=== PATIENT | male | born 1985 | race Caucasian/White ===

== ENCOUNTER 2020-03-20 10:51 | Emergency (ER) | payer BC, SELFPAY ==
--- NOTE | ~2020-03-20 | XR_ITS ---
EXAMINATION: XR chest 2V EXAM DATE: 03/20/2020 11:27 INDICATION: Mid chest pain. TECHNIQUE: Frontal and lateral projections of the chest obtained and reviewed. Comparison is made to prior examination from 03/31/2018. FINDINGS: Mild hyperinflation. The lungs are clear. There are no pleural effusions. The cardiomedi astinal silhouette is within normal limits. There is no pneumothorax suspected. The bones and soft tissues are unremarkable. IMPRESSION: Mild hyperinflation. Clear lungs. Reviewed, dictated and finalized at location B.
--- NOTE | 2020-03-20 10:52 | ECG_ITS ---
Measurements Intervals [place] Rate: 96 P: 51 ID: [id number] QRS: 76 QRSD: 100 T: 71 QT: 359 QTc: 456 Interpretive Statements SINUS RHYTHM WITH SHORT ID INTERVAL BASELINE ARTIFACT- I, II, III, AVR, AVL, AVF, V1, V3-V5 BORDERLINE ECG Electronically Signed On 03-20-2020 11:02:08 CDT by Levi Mclain D.O.
[2020-03-20 11:00] VITALS: BP 136/87; PULSE 97; RESP 18; TEMP 36.5; O2SAT 98
[2020-03-20 11:27] LABS: Basophils Absolute Auto 0.1 K/mm3 (0.0-0.1); Basophils Percent Auto 0.4 % (0.2-1.2); Eosinophils Absolute Auto 0.2 K/mm3 (0-0.3); Eosinophils Percent Auto 1.2 % (0-4.4); Hematocrit 49.8 % (42.0-52.0); Hemoglobin 17.3 g/dL (14.0-18.0); Immature Granulocyte Absolute 0.05 K/mm3 (0.00-0.031); Immature Granulocyte Percent A 0.4 % (0-0.5); Lymphocytes Absolute Auto 3.52 K/mm3 (0.9-3.2); Lymphocytes Percent Auto 27.4 % (18.3-44.2); Mean Corpuscular HGB Conc 34.7 g/dl (32-36); Mean Corpuscular Hemoglobin 30.2 pg (26-34); Mean Corpuscular Volume 87.1 fl (80-100); Mean Platelet Volume 9.2 fl (7.4-10.4); Monocytes Absolute Auto 0.9 K/mm3 (0.1-0.6); Monocytes Percent Auto 6.7 % (2.6-8.5); Neutrophils Absolute Auto 8.2 K/mm3 (1.3-6.7); Neutrophils Percent Auto 63.9 % (45.5-73.1); Platelet Count Result 321 k/mm3 (150-375); Red Blood Count 5.72 M/mm3 (4.6-6.20); Red Cell Distribution Width 12.8 % (11.5-14.5); White Blood Count 12.9 K/mm3 (4.5-10.0)
[2020-03-20 11:38] LABS: Anion Gap 13 mmol/L (8-16); Blood Urea Nitrogen 14 mg/dL (9-20); Calcium 10.1 mg/dL (8.4-10.2); Carbon Dioxide 24 mmol/L (22-30); Chloride 105 mmol/L (98-107); Estimated CRCL calculation 97 ml/min; Estimated Glomerular Filt Rate > 60; Glucose 100 mg/dL (75-110); Sodium 142 mmol/L (137-145)
[2020-03-20 11:40] LABS: Prothrombin Time 13.1 Seconds (11.1-14.7)
[2020-03-20 11:50] LABS: Troponin I < 0.012 ng/mL (0.000-0.034)
[2020-03-20 13:29] VITALS: PULSE 83
[2020-03-20 13:37] VITALS: BP 128/79; PULSE 83; RESP 16; O2SAT 100
[2020-03-20] MEDS: ASPIRIN 81 MG CHEWABLE TABLET 324 MG PO (13:37)
--- NOTE | 2020-03-20 14:14 | ED.CHESTPAIN ---
HPI - Chest Pain General Chief Complaint: Chest Pain Stated Complaint: CP Time Seen by Provider: 03/20/20 13:38 Source: patient Mode of arrival: ambulatory History of Present Illness HPI narrative: This patient is a 34 year old male smoker who presents for evaluation of left chest pain. Patient states he has been having left sternal chest pain daily for 1 month. He states his pain may be worse with stress but he is not sure. He denies associated cough, sob, nausea, vomiting. He states today he was feeling lightheaded. He states he was seen by his PCP yesterday and he is being set up for an ECHO. He states his pain is 5/10 after take aspirin 325 . Related Data Home Medications Medication Instructions Recorded Confirmed alprazolam 06/29/19 sertraline [Zoloft] 100 mg PO DAILY 03/20/20 Allergies Allergy/AdvReac Type Severity Reaction Status Date / Time No Known Allergies Allergy Unknown Verified 03/20/20 11:15 Review of Systems Review of Systems: All systems reviewed & are unremarkable except as noted in HPI and below PMFSH Past Medical History Medical History (Updated 03/20/20 @ 16:42 by Gregoria Navarro MD) Anxiety Social History Social History (Updated 06/29/19 @ 17:13 by Addison Mathur PA-C) Smoking status: Current every day smoker Gender identity (if verbalized by the patient): Male Sexual Orientation (if Verbalized by the Patient): Straight or Heterosexual Exam Narrative: Exam Narrative: GENERAL: Well-appearing, well-nourished, and in no acute distress. HEAD: Normocephalic, atraumatic THROAT:Mucous membranes moist, Oropharynx normal without erythema, exudate, peritonsillar swelling or fluctuance NECK: Supple, without lymphadenopathy or mass RESPIRATORY: No respiratory distress, Airway patent, Respirations non-labored, Clear to auscultation without rales, rhonchi or wheeze HEART: Regular rate and rhythm. No murmur heard. Normal peripheral pulses. ABDOMEN: Soft, nontender, nondistended, normal active bowel sounds. No masses. No rebound or guarding, No organomegaly. EXTREMITIES: No edema, normal strength with full range of motion. SKIN: Warm, dry, normal color without rash NEURO: Alert and oriented x3. CN 2-12 grossly intact. No focal deficits. PSYCH: Normal mood and affect. Course Reevaluation(s) Reevaluation #1: Patient is resting comfortably in bed. His pain has improved. I discussed labs shows leukocytosis but no PE or CO. Date: 03/20/20 Time: 16:18 Vital Signs Vital signs: Vital Signs Temperature 97.7 F 03/20/20 11:00 Pulse Rate 97 03/20/20 11:00 Respiratory Rate 18 03/20/20 11:00 Blood Pressure 136/87 03/20/20 11:00 Pulse Oximetry 98 03/20/20 11:00 Temperature 97.7 F 03/20/20 11:00 Pulse Rate 69 03/20/20 16:49 Respiratory Rate 14 03/20/20 16:49 Blood Pressure 115/74 03/20/20 16:49 Pulse Oximetry 98 03/20/20 16:49 MDM - Chest Pain Lab Data Attestation: I reviewed the patient's lab results. Result diagrams: 03/20/20 11:21 03/20/20 11:21 Labs: Lab Results 03/20/20 03/20/20 03/20/20 Range/Units 11:21 11:21 11:21 WBC 12.9 H (4.5-10.0) K/mm3 RBC 5.72 (4.6-6.20) M/mm3 Hgb 17.3 (14.0-18.0) g/dL Hct 49.8 (42.0-52.0) % MCV 87.1 (80-100) fl MCH 30.2 (26-34) pg MCHC 34.7 (32-36) g/dl RDW 12.8 (11.5-14.5) % Plt Count 321 (150-375) k/mm3 MPV 9.2 (7.4-10.4) fl Immature Gran % (Auto) 0.4 (0-0.5) % Neut % (Auto) 63.9 (45.5-73.1) % Lymph % (Auto) 27.4 (18.3-44.2) % [place] % (Auto) 6.7 (2.6-8.5) % Eos % (Auto) 1.2 (0-4.4) % Baso % (Auto) 0.4 (0.2-1.2) % Lymph # (Auto) 3.52 H (0.9-3.2) K/mm3 [place] # (Auto) 0.9 H (0.1-0.6) K/mm3 Eos # (Auto) 0.2 (0-0.3) K/mm3 Baso # (Auto) 0.1 (0.0-0.1) K/mm3 Abs Immat Gran (auto) 0.05 H (0.00-0.031) K/mm3 Absolute Neuts (auto) 8.2 H (1.3-6.7) K/mm3 Abso
[2020-03-20 14:50] VITALS: BP 120/78; PULSE 74; RESP 18; O2SAT 100
[2020-03-20] MEDS: KETOROLAC 30 MG/ML VIAL (*BKC) IV PUSH (14:50)
[2020-03-20 15:29] LABS: Troponin I < 0.012 ng/mL (0.000-0.034)
[2020-03-20 15:41] LABS: D Dimer 0.27 ug/mL (<0.48)
[2020-03-20 15:46] VITALS: BP 117/77; PULSE 64; RESP 17; O2SAT 98
[2020-03-20 16:49] VITALS: BP 115/74; PULSE 69; RESP 14; O2SAT 98
== END 2020-03-20 16:55 | disposition home or self-care (01) ==
PROVIDERS: Emergency Provider General Practice; PCP Family Medicine
DX: R07.89 Other chest pain (principal); F17.200 Nicotine dependence, unspecified, uncomplicated; F41.9 Anxiety disorder, unspecified
CPT/HCPCS: 36415; 71046; 80048; 84484; 85025; 85380; 85610; 85730; 93005; 96374; 99284; A9270; J1885

== ENCOUNTER 2020-04-14 22:41 | Emergency (ER) | payer BC, SELFPAY ==
--- NOTE | ~2020-04-14 | XR_ITS ---
EXAMINATION: XR chest 1V portable INDICATION: Central chest pain, nausea and vomiting TECHNIQUE: Portable AP chest at 2313 hours COMPARISON: 03/20/2020 FINDINGS: The lungs are free of acute opacities. There is no pleural effusion or pneumothorax. The ca rdiomediastinal silhouette is normal. IMPRESSION: 1. No acute cardiopulmonary abnormality. Reviewed, dictated and finalized at location A. RWEAR CUTTER
--- NOTE | 2020-04-14 22:45 | ED.CHESTPAIN ---
HPI - Chest Pain General Chief Complaint: Chest Pain Stated Complaint: cp Time Seen by Provider: 04/14/20 22:44 History of Present Illness HPI narrative: Intermittent sharp, stabbing chest pain for the past month. Substernal radiating to the left. Associated with SOB, nausea, occasional vomiting. He believes that it may be axiety related, he has a h/o this and his anxiety is worse due to the fact that his recently left him. Related Data Home Medications Medication Instructions Recorded Confirmed alprazolam 06/29/19 escitalopram oxalate mg 04/14/20 Allergies Allergy/AdvReac Type Severity Reaction Status Date / Time No Known Allergies Allergy Unknown Verified 04/14/20 22:52 Review of Systems Review of Systems: All systems reviewed & are unremarkable except as noted in HPI and below Constitutional: Constitutional: Denies fever(s) Cardiovascular: Cardiovascular: Reports chest pain Respiratory: Respiratory: Reports dyspnea Gastrointestinal: Gastrointestinal: Reports nausea and Reports vomiting Neurologic: Reports dizziness and Reports numbness Psychiatric: Psychiatric: Reports anxiety and Reports depression PMFSH Past Medical History Medical History Anxiety Surgical History Surgical History History of orthopedic surgery Social History Social History Smoking status: Current every day smoker Gender identity (if verbalized by the patient): Male Exam Const: General: alert Nutritional Appearance: well nourished Orientation/consciousness: patient oriented x3 HENMT: Head: normal to inspection Chest: Chest palpation & inspection: tenderness Resp: Effort & Inspection: normal respiratory effort Auscultation: clear to auscultation bilaterally Cardio: Rate: tachycardic Rhythm: regular rhythm GI: GI Palp: Yes Soft to palpation and No Tenderness to palpation present (GI) Skin: General skin exam: normal color Neuro: General: patient oriented x3 and moves all extremities Speech: normal speech Extrem: General: normal to inspection Psych: Affect: Anxious affect present (tearful) Course Vital Signs Vital signs: Vital Signs Temperature 36.5 C 04/14/20 22:46 Pulse Rate 104 H 04/14/20 22:46 Respiratory Rate 15 04/14/20 22:46 Blood Pressure 145/101 H 04/14/20 22:46 Pulse Oximetry 100 04/14/20 22:46 Temperature 36.5 C 04/14/20 22:46 Pulse Rate 102 H 04/14/20 22:55 Respiratory Rate 15 04/14/20 22:46 Blood Pressure 145/101 H 04/14/20 22:46 Pulse Oximetry 99 04/14/20 22:55 MDM - Chest Pain MDM Narrative Medical decision making narrative: Pain not typical for cardiac causes and he is not at high risk. Pain improved with GI cocktail. likely a combination of GI tract related pain and anxiety Medical Records Data Attestation: I reviewed the patient's medical records. Lab Data Attestation: I reviewed the patient's lab results. Result diagrams: 04/14/20 22:59 04/14/20 22:59 Labs: Lab Results 04/14/20 04/14/20 Range/Units 22:59 22:59 WBC 13.8 H (4.5-10.0) K/mm3 RBC 5.05 (4.6-6.20) M/mm3 Hgb 15.5 (14.0-18.0) g/dL Hct 44.8 (42.0-52.0) % MCV 88.7 (80-100) fl MCH 30.7 (26-34) pg MCHC 34.6 (32-36) g/dl RDW 12.8 (11.5-14.5) % Plt Count 253 (150-375) k/mm3 MPV 9.4 (7.4-10.4) fl Immature Gran % (Auto) 0.4 (0-0.5) % Neut % (Auto) 64.3 (45.5-73.1) % Lymph % (Auto) 27.3 (18.3-44.2) % [place] % (Auto) 6.5 (2.6-8.5) % Eos % (Auto) 1.2 (0-4.4) % Baso % (Auto) 0.3 (0.2-1.2) % Lymph # (Auto) 3.76 H (0.9-3.2) K/mm3 [place] # (Auto) 0.9 H (0.1-0.6) K/mm3 Eos # (Auto) 0.2 (0-0.3) K/mm3 Baso # (Auto) 0.0 (0.0-0.1) K/mm3 Abs Immat Gran (auto) 0.05 H (0.00-0.031) K/mm3 Absolute Neuts (auto
[2020-04-14 22:46] VITALS: BP 145/101; PULSE 104; RESP 15; TEMP 36.5; O2SAT 100
--- NOTE | 2020-04-14 22:48 | ECG_ITS ---
Measurements Intervals [place] Rate: 100 P: 74 [place]: 131 QRS: 72 QRSD: 97 T: 68 QT: 342 QTc: 442 Interpretive Statements SINUS TACHYCARDIA POSSIBLE LEFT ATRIAL ENLARGEMENT INCOMPLETE RIGHT BUNDLE BRANCH BLOCK NONSPECIFIC T-WAVE ABNORMALITY- INFERIOR LEADS BASELINE ARTIFACT- I, II, III, AVR, AVL, AVF, V1 BORDERLINE ECG Electronically Signed On 04-15-2020 9:59:33 FAMILY THERAPIST by Levi Mclain D.O.
[2020-04-14 22:55] VITALS: PULSE 102; O2SAT 99
[2020-04-14] MEDS: PANTOPRAZOLE SODIUM IV 40 MG VIAL IV PUSH (23:03)
[2020-04-14] MEDS: BELLADONNA ALK/PHENOB ELIX 10 ML, MAG HYDROX/ALUMINUM HYD/SIMETH 30 ML, LIDOCAINE HCL 2... PO (23:03)
[2020-04-14 23:10] LABS: Basophils Percent Auto 0.3 % (0.2-1.2); Eosinophils Absolute Auto 0.2 K/mm3 (0-0.3); Eosinophils Percent Auto 1.2 % (0-4.4); Hematocrit 44.8 % (42.0-52.0); Hemoglobin 15.5 g/dL (14.0-18.0); Immature Granulocyte Absolute 0.05 K/mm3 (0.00-0.031); Immature Granulocyte Percent A 0.4 % (0-0.5); Lymphocytes Absolute Auto 3.76 K/mm3 (0.9-3.2); Lymphocytes Percent Auto 27.3 % (18.3-44.2); Mean Corpuscular HGB Conc 34.6 g/dl (32-36); Mean Corpuscular Hemoglobin 30.7 pg (26-34); Mean Corpuscular Volume 88.7 fl (80-100); Mean Platelet Volume 9.4 fl (7.4-10.4); Monocytes Absolute Auto 0.9 K/mm3 (0.1-0.6); Monocytes Percent Auto 6.5 % (2.6-8.5); Neutrophils Absolute Auto 8.9 K/mm3 (1.3-6.7); Neutrophils Percent Auto 64.3 % (45.5-73.1); Platelet Count Result 253 k/mm3 (150-375); Red Blood Count 5.05 M/mm3 (4.6-6.20); Red Cell Distribution Width 12.8 % (11.5-14.5); White Blood Count 13.8 K/mm3 (4.5-10.0)
[2020-04-14 23:21] LABS: Alanine Aminotransferase 22 U/L (4-50); Alkaline Phosphatase 70 U/L (38-126); Anion Gap 10 mmol/L (8-16); Aspartate Amino Transferase 25 U/L (17-59); Bilirubin,Total 0.5 mg/dL (0.2-1.3); Blood Urea Nitrogen 10 mg/dL (9-20); Calcium 9.5 mg/dL (8.4-10.2); Carbon Dioxide 27 mmol/L (22-30); Chloride 101 mmol/L (98-107); Estimated CRCL calculation 107 ml/min; Estimated Glomerular Filt Rate > 60; Glucose 131 mg/dL (75-110); Potassium 3.5 mmol/L (3.4-5.0); Sodium 138 mmol/L (137-145)
[2020-04-14 23:32] LABS: Troponin I < 0.012 ng/mL (0.000-0.034)
[2020-04-14 23:50] VITALS: BP 117/81; PULSE 78; RESP 16; TEMP 36.7; O2SAT 99
== END 2020-04-14 23:50 | disposition home or self-care (01) ==
PROVIDERS: Emergency Provider Emergency Medicine; PCP Family Medicine
DX: F41.9 Anxiety disorder, unspecified (principal); R07.89 Other chest pain; F17.200 Nicotine dependence, unspecified, uncomplicated; R00.0 Tachycardia, unspecified; R94.31 Abnormal electrocardiogram [ECG] [EKG]; I45.10 Unspecified right bundle-branch block
CPT/HCPCS: 36415; 71045; 80053; 84484; 85025; 93005; 96374; 99284; A9270; C9113

== ENCOUNTER 2020-06-28 12:35 | Outpatient (CLI) | payer BC, SELFPAY ==
--- NOTE | 2020-06-28 | ECHO_ITS ---
Patient Info Name: Bora Naranjo Age: 35 years : 1985 Gender: Male Ht: 68 in Wt: 180 lbs BSA: 2.00 m2 HR: 72 bpm BP: 126 / 87 mmHg Technical Quality: Fair Exam Date: 06/28/2020 1:03 PM Exam Location: [facility] Patient Status: Outpatient Admit Date: 06/28/2020 Staff Ordering Physician: WyattAshleigh NP Manager Production: Jazmín Hewitt RDCS Attending Provider: WyattAshleigh NP Exam Type: CA echo doppler color flow Study Info Indications R94.31 - Abnormal electrocardiogram ECG EKG Complete two-dimensional, color flow and Doppler transthoracic echocardiogram is performed. Summary 1. Complete two-dimensional, color flow and Doppler transthoracic echocardiogram is performed. 2. Left ventricular chamber dimension is normal. 3. Left ventricular systolic function is normal, estimated at 60-65%. 4. The left ventricular diastolic function is normal. 5. E/e' 9 is minimally elevated. 6. No pulmonary hypertension, estimated pulmonary arterial systolic pressure is 19 mmHg. Left Ventricle E/e' 9 is minimally elevated. Left ventricular chamber dimension is normal. Left ventricular systolic function is normal, estimated at 60-65%. The left ventricular diastolic function is normal. Right Ventricle Right ventricular chamber dimension is normal. Right ventricular systolic function is normal. Left Atria Left atrial chamber dimension is normal. Right Atria Right atrial chamber dimension is normal. Aortic Valve The aortic valve is trileaflet. There is no aortic valve stenosis. There is no aortic valve regurgitation. Pulmonic Valve There is no pulmonic regurgitation. Mitral Valve There is no mitral valve stenosis. There is no mitral valve regurgitation. Tricuspid Valve There is no tricuspid valve regurgitation. No pulmonary hypertension, estimated pulmonary arterial systolic pressure is 19 mmHg. Pericardium/Pleural There is no pericardial effusion. Inferior Vena Cava Normal inferior vena cava with >50% collapse upon inspiration consistent with normal right atrial pressure, 5 mmHg. Aorta The aortic root size at the sinus of Valsalva is normal. Left Ventricular Outflow Tract Name Value Normal LVOT 2D LVOT Diameter 2.0 cm LVOT Doppler LVOT Peak Gradient 4 mmHg LVOT Mean Gradient 2 mmHg LVOT VTI 20 cm LVOT VTI/AV VTI Ratio 1.0 LVOT Stroke Volume 64 ml LVOT CO 4.5 l/min LVOT CI 2.3 l/min/m2 Pulmonic Valve Name Value Normal RVOT Doppler RVOT Peak Gradient 2 mmHg PV Doppler PV Peak Gradient
== END 2020-06-28 12:36 | disposition home or self-care (01) ==
PROVIDERS: PCP Family Medicine; Visit Provider Nurse Practitioner Family
DX: R94.31 Abnormal electrocardiogram [ECG] [EKG] (principal)
CPT/HCPCS: 93306

== ENCOUNTER 2021-06-08 19:38 | Emergency (ER) | payer BC, SELFPAY ==
--- NOTE | 2021-06-08 19:42 | ED.URI ---
HPI - URI/Sore Throat General Chief Complaint: Upper Respiratory Infection Stated Complaint: Sinus infection Time Seen by Provider: 06/08/21 19:42 Source: patient and RN notes reviewed Mode of arrival: ambulatory Limitations: no limitations History of Present Illness HPI Narrative: Bora is a 36-year-old male patient who ambulated into the [facility]. Patient states he has a 3-day history of sinus congestion and sore throat. Patient has been taken Tylenol sinus [id number]. Patient denies any medical history except for anxiety. MD elicited complaint: nasal congestion Related Data Home Medications Medication Instructions Recorded Confirmed alprazolam 06/08/21 aripiprazole mg 06/08/21 cyclobenzaprine mg 06/08/21 escitalopram oxalate mg 06/08/21 escitalopram oxalate mg 06/08/21 Allergies Allergy/AdvReac Type Severity Reaction Status Date / Time No Known Allergies Allergy Unknown Verified 06/08/21 19:41 Review of Systems Review of Systems: CONSTITUTIONAL: Denies body aches, fever, chills, or sweats. EYES: Denies visual changes, redness, or discharge. ENT: Denies rhinorrhea, +congestion,+ sore throat, denies otalgia. CARDIOVASCULAR: Denies chest pain, palpitations, or edema. RESPIRATORY: Denies cough or dyspnea. GASTROINTESTINAL: Denies abdominal pain, nausea, vomiting, or diarrhea. GENITOURINARY: Denies dysuria or hematuria. SKIN: Denies rash, itching, or wounds. MUSCULOSKELETAL: Denies back pain, joint pain, or myalgia. NEUROLOGIC: Denies headache, numbness, tingling, or weakness. PSYCH: Denies depression or anxiety. All systems reviewed & are unremarkable except as noted in HPI and below PMFSH Past Medical History Medical History Anxiety Surgical History Surgical History History of orthopedic surgery Social History Social History Smoking status: Current every day smoker Gender identity (if verbalized by the patient): Male Sexual Orientation (if Verbalized by the Patient): Straight or Heterosexual Comments At time of signature, I have reviewed and agree with nursing past medical, surgical, social and family history unless otherwise noted. Please see nursing chart for further information. There is no relevant family history pertinent to the presenting complaint Exam Narrative: GENERAL: Well-appearing, well-nourished, and in no acute distress. HEAD: Normocephalic, atraumatic. EYES: EOMI. No redness or drainage. Conjunctivae normal. ENT: Mucous membranes pink and moist. Nasal membranes erythemic with clear rhinorrhea. Bilateral tympanic membranes are dull posterior pharynx is erythemic with moderate edema and moderate amount of clear postnasal drainage Uvula midline. NECK: Normal AROM. Supple. . CHEST: No respiratory distress. Clear to auscultation. MUSCULOSKELETAL: No bony tenderness. EXTREMITIES: Normal range of motion. No edema. SKIN: Warm, dry, no rash. Capillary refill normal. Normal skin turgor. NEURO: No focal deficits. Alert and oriented x3. Gait steady. PSYCH: Normal affect. No signs of depression or anxiety. Course Vital Signs Vital signs: Reviewed. Pt has been instructed to follow up with his PCP regarding his elevated blood pressure today. MDM - URI/Sore Throat MDM Narrative Medical decision making narrative: COVID-19 patient's rapid COVID-19 test is positive. Patient was instructed to quarantine for 10 days after symptom onset. Patient was advised he may use [id number] cold medications for symptomatic relief. Patient may use Motrin or Tylenol for fever or pain. Increase his fluids. Go to the ER urgently for any severe shortness of breath, chest pain, or any other emergent symptoms Differential Diagnosis Differential diagnosis: Likely upper respiratory infection, sinusitis and viral infe
[2021-06-08 19:47] VITALS: BP 142/88; PULSE 94; RESP 16; TEMP 37.6; O2SAT 99
== END 2021-06-08 19:55 | disposition home or self-care (01) ==
PROVIDERS: Emergency Provider Nurse Practitioner Family; PCP Dentist
DX: U07.1 COVID-19 (principal)
CPT/HCPCS: 87426; 99213; C9803; G0463

== ENCOUNTER 2023-08-15 17:27 | Emergency (ER) | payer BC, SELFPAY ==
[2023-08-15 17:36] VITALS: BP 150/86; PULSE 87; RESP 18; TEMP 36.9; O2SAT 100
--- NOTE | 2023-08-15 17:41 | ED.DENTAL ---
HPI - Dental/Oral General Chief complaint: Dental/Oral Stated complaint: Dental Pain Source: patient, RN notes reviewed and old records reviewed Mode of arrival: ambulatory Limitations: no limitations History of Present Illness HPI Narrative: 38-year-old male patient presents to [facility] with complaints left upper dental pain for last 1-2 weeks. Patient states now is having abscess form of gum and increased redness and pain in face. Patient states has had dental work on that tooth before. Patient states he is trying to get back in the dentist. Related Data Allergies Allergy/AdvReac Type Severity Reaction Status Date / Time No Known Allergies Allergy Unknown Verified 08/15/23 17:40 Review of Systems Constitutional: Constitutional: Reports no additional constitutional complaints, Denies body ache(s), Denies chills, Denies fatigue, Denies fever(s) and Denies headache(s) Eyes: Eyes: Reports no additional eye complaints and Denies blurry vision ENT: Reports system reviewed and no additional complaints, except as documented, Reports dental pain, Denies vertigo, Denies dizziness, Denies ear discharge, Denies otalgia, Denies facial pain, Denies headache(s), Reports mouth pain, Denies nasal congestion, Denies nasal discharge, Denies sinus pain, Denies sinus pressure and Denies sore throat Cardiovascular: Cardiovascular: Reports no additional cardiovascular complaints, Denies chest pain, Denies chest pain at rest, Denies rapid heart rate and Denies dyspnea Respiratory: Respiratory: Reports no additional respiratory complaints, Denies chest congestion, Denies cough, Denies pain on inspiration, Denies pain with cough and Denies dyspnea Gastrointestinal: Gastrointestinal: Denies abdominal pain, Denies diarrhea, Denies nausea and Denies vomiting Integumentary/Breasts: Skin/Breast: Denies rash Neurologic: Reports system reviewed and no additional complaints, except as documented, Denies vertigo, Denies dizziness and Denies headache(s) Endocrine: Endocrine: Denies fatigue PMFSH Past Medical History Medical History Anxiety Surgical History Surgical History History of orthopedic surgery Social History Social History Smoking status: Current every day smoker Gender identity (if verbalized by the patient): Male Sexual Orientation (if Verbalized by the Patient): Straight or Heterosexual Comments At the time of my signature, I reviewed and agree with the nursing past medical, surgical, social, and family history. There is no relevant family history pertinent to the patient complaint. Exam Const: General: cooperative, healthy appearing, no acute distress and well nourished Nutritional Appearance: well nourished Orientation/consciousness: patient oriented x3 Limitations: no limitations HENMT: Head: normal to inspection and normocephalic Ears: external ears normal Face/Nose/Sinus: normal facial exam Face and sinus: normal facial exam Mouth: Yes Normal oral and palatal mucosa present, Yes oropharynx normal and Yes moist mucous membranes Teeth and gingiva: gingiva abnormal edematous, diffusely erythematous and other ( Abscess noted between 12 and 13) and poor dentition Throat: tonsils normal, uvula midline and no uvular edema Eyes: General: appearance normal, both eyes and all related structures Sclera: sclerae normal Pupils: Equal, round and reactive pupils present Resp: Effort & Inspection: normal respiratory effort, able to speak in complete sentences, no audible wheezes, no cough, no respiratory distress and no retractions Auscultation: clear to auscultation bilaterally, no crackles, no rales, no rhonchi and no wheezes Cardio: Rate: regular rate Rhythm: regular rhythm Skin: General skin exam: normal color and no rashes or lesions noted Neuro: Genera
== END 2023-08-15 17:53 | disposition home or self-care (01) ==
PROVIDERS: Emergency Provider Registered Nurse
DX: K04.7 Periapical abscess without sinus (principal); F41.9 Anxiety disorder, unspecified; F17.200 Nicotine dependence, unspecified, uncomplicated
CPT/HCPCS: 99213; G0463

== ENCOUNTER 2025-06-02 12:45 | Emergency (ER) | payer BC, SELFPAY ==
[2025-06-02 12:56] VITALS: BP 144/87; PULSE 91; RESP 18; TEMP 36.8; O2SAT 99
[2025-06-02 13:08] LABS: EDSTREPNEGPOS1 Negative (Negative)
--- NOTE | 2025-06-02 13:18 | ED.URI ---
HPI - URI/Sore Throat General Chief Complaint: Upper Respiratory Infection Stated Complaint: SoreThroat Related Data Home Medications ?Medication ?Instructions ?Recorded ?Confirmed ?Last Taken ?Type lisinopril 30 mg tablet mg 06/02/25 Unknown History quetiapine 50 mg tablet mg 06/02/25 Unknown History Allergies Allergy/AdvReac Type Severity Reaction Status Date / Time No Known Allergies Allergy Unknown Verified 06/02/25 12:56 Review of Systems Constitutional: Constitutional: Reports as per HPI, Denies chills, Denies fatigue, Denies fever(s) and Denies weakness Eyes: Eyes: Reports no additional eye complaints ENT: Reports as per HPI, Denies vertigo, Denies dizziness, Reports nasal congestion and Reports sore throat Cardiovascular: Cardiovascular: Reports no additional cardiovascular complaints Respiratory: Respiratory: Reports as per HPI, Reports chest congestion, Reports cough, Denies dyspnea and Denies wheezing Gastrointestinal: Gastrointestinal: Reports no additional gastrointestinal complaints Genitourinary: Genitourinary: Reports no additional male genitourinary complaints Musculoskeletal: Musculoskeletal: Reports as per HPI, Denies back pain and Denies myalgias Integumentary/Breasts: Skin/Breast: Reports as per HPI, Denies erythema, Denies rash and Denies skin ulcer Neurologic: Reports as per HPI, Denies vertigo, Denies dizziness, Reports headache(s) and Denies weakness Psychiatric: Psychiatric: Reports no additional psychiatric complaints Endocrine: Endocrine: Reports no additional endocrine complaints Hematologic/Lymphatic: Hematologic/Lymphatic: Reports no additional hematologic/lymphatic complaints Allergic/Immunologic: Allergic/Immunologic: Reports as per HPI Comments: seasonal allergies PMFSH Past Medical History Medical History Anxiety Surgical History Surgical History History of orthopedic surgery Social History Social History Smoking status: Current every day smoker Gender identity (if verbalized by the patient): Male Sexual Orientation (if Verbalized by the Patient): Straight or Heterosexual Exam Const: General: healthy appearing and no acute distress Nutritional Appearance: well nourished Orientation/consciousness: patient oriented x3 Limitations: no limitations HENMT: Head: normal to inspection Ears: external ears normal and TM's normal bilaterally Face/Nose/Sinus: Normal external nose present, Normal nares present and Nasal discharge present clear Face and sinus: normal facial exam and sinuses nontender Mouth: Yes Normal oral and palatal mucosa present, Yes lip normal and Yes moist mucous membranes Throat: posterior oropharynx abnormal ( Minimal erythema and edema no exudate) Neck: Neck: normal visual inspection and no lymphadenopathy Resp: Effort & Inspection: normal respiratory effort Auscultation: no rhonchi, wheezes, breath sounds present and lung sounds not diminished Cardio: Rate: regular rate Rhythm: regular rhythm Skin: General skin exam: normal color Rashes: no rashes Wounds: no wounds Neuro: General: patient oriented x3 Speech: normal speech Gait exam (Neuro): Normal gait present Psych: Mental Status: mental status grossly normal Affect: normal affect Attitude: cooperative Course Course Level of Care: Express Care Visit Vital Signs Vital signs: Vital Signs Temperature 98.2 F 06/02/25 12:56 Pulse Rate 91 06/02/25 12:56 Respiratory Rate 18 06/02/25 12:56 Blood Pressure 144/87 H 06/02/25 12:56 Pulse Oximetry 99 06/02/25 12:56 Oxygen Delivery Room Air 06/02/25 12:56 Temperature 98.2 F 06/02/25 12:56 Pulse Rate 91 06/02/25 12:56 Respiratory Rate 18 06/02/25 12:56 Blood Pressure 144/87 H 06/02/25 12:56 Pulse Oximetry 99 06/02/25 12:56 Oxygen Delivery Room Air 06/02/25 12:56 [facility] Narrative Medical decision making narrative: Strep testing negative will send culture likely bronchitis The patient was evaluated by myself in the express care. History is obtained from patient who is an independent historian and physical exam was performed. Available medical records were reviewed at this time. Exam findings show no acute concerns or changes; patient is non-toxic appearing and is in no distress. Patient is appropriate for outpatient treatment and follow-up. I have evaluated and discussed social determinants of health with the patient that could potentially impact subsequent diagnosis and treatment plans. Differential diagnosis and treatment plan were discussed with the patient. Patient agrees with discussion and after shared medical decision making agrees with plan of care. All questions were answered to the patient's satisfaction. Differential Diagnosis Differential Diagnosis: bronchitis, sinusitis, croup, upper respiratory infection, strep, influenza Medical Records I have reviewed the following patient records and this information was taken into consideration when formulating the assessment and plan.: previous labs, previous ER visits, previous hospitalizations and previous clinic visits Lab Data MDM Lab Attestation statement: I personally reviewed the patient's lab results. Labs: Lab Results 06/02/25 Range/Units 13:06 POC Grp A Strep Screen Negative (Negative) Discharge Plan Discharge Clinical Impression: Bronchitis Patient Disposition: Home Condition: Stable Instructions: Antibiotic Form, Acute Bronchitis (ED) Additional Instructions: you have been diagnosed with bronchitis, this is more commonly a viral illness. Taking medications to control your symptoms will help until your body gets rid of this virus. Antibiotics will not work to get you better sooner. Bronchitis does occasionally a post viral cough that is dry and hacking in nature that can last 6-8 weeks. Medication you can take to make you feel better: prednisone as directed. this medication can cause jitteriness or palpitations. If this happens You may stop this medication. albuterol inhaler every 4 hours as needed for cough, shortness of breath, or wheezing. Tessalon Perles/benzonatate for cough. These can be taken 3 times a day as needed. May also use [id number] medications like Mucinex, Sudafed, Flonase, Tylenol, and ibuprofen. If your symptoms worsen or last longer than 7-10 days follow-up with primary care provider or emergency room as needed. Patient Language: Swedish Prescriptions: New benzonatate 200 mg capsule 200 mg PO TID PRN (Reason: cough) Qty: 30 0RF methylprednisolone [Medrol (Tony)] 4 mg tablets,dose pack See Rx Instructions .ROUTE .COMPLEX Qty: 21 0RF Rx Instructions: for 6 days albuterol sulfate [Ventolin HFA] 90 mcg/actuation HFA aerosol inhaler 2 puff inhalation QID PRN (Reason: shortness of breath or wheezing) Qty: 8.5 0RF No Action lisinopril 30 mg tablet quetiapine 50 mg tablet Follow-up/Referrals: PHYSICIAN NOT ON STAFF,NONSTAFF [Primary Care Provider] Stand Alone Forms: Work/School Release IP Time of Disposition: 13:19
== END 2025-06-02 13:25 | disposition home or self-care (01) ==
PROVIDERS: Emergency Provider Nurse Practitioner Family
DX: J40 Bronchitis, not specified as acute or chronic (principal); F17.200 Nicotine dependence, unspecified, uncomplicated
CPT/HCPCS: 87081; 87880; 99213; G0463